=== PATIENT | male | born 1950 | race Caucasian/White ===

== ENCOUNTER → 2022-03-14 14:46 | Outpatient (CLI) | payer MEDICARE, SELFPAY ==
[2022-03-14 20:27] LABS: Free T3, Triiodothyronine Free 2.91 pg/mL (2.77-5.27)
[2022-03-14 20:41] LABS: Thyroid Stimulating Hormone 2.77 uIU/mL (0.47-4.68)
== END ==
PROVIDERS: PCP Urology
DX: E89.0 Postprocedural hypothyroidism (principal)
CPT/HCPCS: 84439; 84443; 84481

== ENCOUNTER → 2022-05-08 14:27 | Outpatient (CLI) | payer MEDICARE, SELFPAY ==
[2022-05-08 19:12] LABS: BUN Creatinine Ratio 21.7 (6-22); Blood Urea Nitrogen 23 mg/dL (9-20); Calcium 9.4 mg/dL (8.4-10.2); Carbon Dioxide 29 mmol/L (22-32); Chloride 102 mmol/L (98-107); Estimated Glomerular Filt Rate > 60 mL/min (>60); Glucose 99 mg/dL (80-110); HEMOLYSIS < 15 (0-50); Potassium 4.4 mmol/L (3.4-5.1); Sodium 140 mmol/L (137-145)
== END ==
PROVIDERS: PCP Urology; Visit Provider Nurse Practitioner Family
DX: I50.22 Chronic systolic (congestive) heart failure (principal)
CPT/HCPCS: 80048

== ENCOUNTER → 2023-04-05 10:49 | Outpatient (CLI) | payer MEDICARE, SELFPAY | PROVIDERS: PCP Physician Assistant Medical; Visit Provider Physician Assistant Medical | DX: L03.90 Cellulitis, unspecified (principal); T14.8XXA Other injury of unspecified body region, initial encounter; W50.3XXA Accidental bite by another person, initial encounter | CPT/HCPCS: 87070; 87075; 87205 ==

== ENCOUNTER → 2023-05-14 10:49 | Outpatient (CLI) | payer MEDICARE, SELFPAY ==
[2023-05-14 19:43] LABS: Alanine Aminotransferase 29 IU/L (<50); Albumin Globulin Ratio 1.3 (1.0-2.8); Alkaline Phosphatase 84 U/L (38-126); Aspartate Aminotransferase 37 IU/L (17-59); BUN Creatinine Ratio 15.2 (6-22); Bilirubin Total 1.3 mg/dL (0.2-1.3); Blood Urea Nitrogen 15 mg/dL (9-20); Carbon Dioxide 28 mmol/L (22-32); Chloride 103 mmol/L (98-107); Estimated Glomerular Filt Rate > 60 mL/min (>60); Glucose 108 mg/dL (80-110); HEMOLYSIS 39 (0-50); Potassium 4.4 mmol/L (3.4-5.1); Sodium 139 mmol/L (137-145)
[2023-05-14 19:52] LABS: Free T3, Triiodothyronine Free 3.25 pg/mL (2.77-5.27)
== END ==
PROVIDERS: PCP Physician Assistant Medical; Visit Provider Physician Assistant Medical
DX: E07.9 Disorder of thyroid, unspecified (principal)
CPT/HCPCS: 80053; 84443; 84481